=== PATIENT | female | born 1990 | race Caucasian/White ===

== ENCOUNTER 2017-05-12 06:12 | Emergency (ER) | payer OTHER | END 2017-05-12 09:12 | disposition home or self-care (01) | LOC: ER1 06:12 | DX: N34.2 Other urethritis (principal); R10.2 Pelvic and perineal pain; F17.200 Nicotine dependence, unspecified, uncomplicated; Z88.0 Allergy status to penicillin; Z88.1 Allergy status to other antibiotic agents; Z88.8 Allergy status to other drugs, medicaments and biological substances | CPT/HCPCS: 81001; 84703; 87210; 99283; Q9962 ==

== ENCOUNTER 2017-05-12 22:44 | Emergency (ER) | payer OTHER ==
[2017-05-13 00:42] LABS: HEMOGLOBIN 13.3 gm/dl (12.3-15.3); RED BLOOD COUNT 4.41 M/UL (4.00-5.10); WHITE BLOOD COUNT 8.1 K/UL (4.5-11.0)
[2017-05-13 00:58] LABS: BUN/CREATININE RATIO 21 (0-10)
== END 2017-05-13 02:30 | disposition home or self-care (01) ==
LOC: ER1 22:44
PROVIDERS: Family Medicine
DX: R10.84 Generalized abdominal pain (principal); F17.210 Nicotine dependence, cigarettes, uncomplicated; Z88.0 Allergy status to penicillin; Z88.1 Allergy status to other antibiotic agents; Z88.5 Allergy status to narcotic agent
CPT/HCPCS: 36415; 80053; 81001; 82150; 83690; 84703; 85025; 99284; J1885; J7050

== ENCOUNTER 2020-09-13 19:10 | Emergency (ER) | payer OTHER ==
[~2020-09-13 19:10] MED LIST: AUGMENTIN 875-1 EACH PO; BACTROBAN OINT22 GM EXT; DIFLUCAN150 MG PO; FLOXIN 0.3% OTIC5 ML AD; IBU800 MG PO; IBUPROFEN600 MG PO; IBUPROFEN800 MG PO
== END 2020-09-13 20:25 | disposition left against medical advice (07) ==
LOC: ER1 19:10
DX: H92.03 Otalgia, bilateral (principal); R51.9 Headache, unspecified; R07.9 Chest pain, unspecified; Z53.21 Procedure and treatment not carried out due to patient leaving prior to being seen by health care provider

== ENCOUNTER 2021-01-02 18:58 | Emergency (ER) | payer OTHER ==
[2021-01-03 01:33] LABS: HEMOGLOBIN 13.8 gm/dl (12.3-15.3); RED BLOOD COUNT 4.49 M/UL (4.00-5.10); WHITE BLOOD COUNT 7.3 K/UL (4.5-11.0)
[2021-01-03 01:52] LABS: BUN/CREATININE RATIO 12 (0-10)
[2021-01-03] MEDS ORDERED: CYCLOBENZAPRINE5 MG PO (03:49)
[2021-01-03] MEDS ORDERED: NAPROSYN500 MG PO (03:49)
[2021-01-03] MEDS ORDERED: PREDNISONE 20 M20 MG PO (04:26)
== END 2021-01-03 04:47 | disposition home or self-care (01) ==
LOC: ER1 18:58
PROVIDERS: Physician Assistant
DX: S39.012A Strain of muscle, fascia and tendon of lower back, initial encounter (principal); R10.31 Right lower quadrant pain; M25.551 Pain in right hip; M79.604 Pain in right leg; Z88.0 Allergy status to penicillin; Z88.1 Allergy status to other antibiotic agents; Z88.6 Allergy status to analgesic agent; F17.200 Nicotine dependence, unspecified, uncomplicated; X58.XXXA Exposure to other specified factors, initial encounter; Y92.009 Unspecified place in unspecified non-institutional (private) residence as the place of occurrence of the external cause
CPT/HCPCS: 80053; 81001; 83690; 84703; 85025; 96374; 96375; 99284; J2270; J2405; J7030; Q9967

== ENCOUNTER 2021-02-07 22:56 | Emergency (ER) | payer OTHER ==
[~2021-02-07 22:56] MED LIST changes: +CYCLOBENZAPRINE5 MG PO; +NAPROSYN500 MG PO; +PREDNISONE 20 M20 MG PO
[2021-02-08 01:33] LABS: HEMOGLOBIN 14.3 gm/dl (12.3-15.3); RED BLOOD COUNT 4.66 M/UL (4.00-5.10); WHITE BLOOD COUNT 9.2 K/UL (4.5-11.0)
[2021-02-08 01:46] LABS: BUN/CREATININE RATIO 17 (0-10)
== END 2021-02-08 02:07 | disposition left against medical advice (07) ==
LOC: ER1 22:56
PROVIDERS: Emergency Medicine
DX: R10.31 Right lower quadrant pain (principal); R11.0 Nausea; R10.811 Right upper quadrant abdominal tenderness; F17.200 Nicotine dependence, unspecified, uncomplicated
CPT/HCPCS: 80053; 83690; 84703; 85025; 96374; 96375; 99284; J2270; J2405; Q9967

== ENCOUNTER 2021-03-30 00:14 | Emergency (ER) | payer OTHER ==
[2021-03-30 00:57] LABS: RED BLOOD COUNT 4.53 M/UL (4.00-5.10); WHITE BLOOD COUNT 8.2 K/UL (4.5-11.0)
[2021-03-30 01:15] LABS: BUN/CREATININE RATIO 9 (0-10)
[2021-03-30] MEDS ORDERED: ZOFRAN ODT 4 MG4 MG PO (03:32)
[2021-03-30] MEDS ORDERED: BENTYL 20MG TAB20 MG PO (03:32)
== END 2021-03-30 03:40 | disposition home or self-care (01) ==
LOC: ER1 00:14
PROVIDERS: Physician Assistant
DX: R10.31 Right lower quadrant pain (principal); R11.0 Nausea; Z88.0 Allergy status to penicillin; Z88.5 Allergy status to narcotic agent; Z88.8 Allergy status to other drugs, medicaments and biological substances
CPT/HCPCS: 80053; 81001; 83605; 83690; 84703; 85025; 87086; 99284; Q9967

== ENCOUNTER 2021-07-28 10:18 | Emergency (ER) | payer OTHER ==
[~2021-07-28 10:18] MED LIST changes: +BENTYL 20MG TAB20 MG PO; +ZOFRAN ODT 4 MG4 MG PO
== END 2021-07-28 11:32 | disposition home or self-care (01) ==
LOC: ER1 10:18
DX: R05.9 Cough, unspecified (principal); Z88.0 Allergy status to penicillin; Z88.8 Allergy status to other drugs, medicaments and biological substances; F17.200 Nicotine dependence, unspecified, uncomplicated; Z20.822 Contact with and (suspected) exposure to COVID-19
CPT/HCPCS: 99283; U0003

== ENCOUNTER 2021-07-30 17:29 | Emergency (ER) | payer OTHER ==
[2021-07-30] MEDS ORDERED: MECLIZINE HCL12.5 MG PO (22:33)
[2021-07-30] MEDS ORDERED: MACROBID 100 M100 MG PO (22:33)
== END 2021-07-30 22:00 | disposition home or self-care (01) ==
LOC: ER1 17:29
DX: H92.03 Otalgia, bilateral (principal); R42 Dizziness and giddiness; J06.9 Acute upper respiratory infection, unspecified; R30.0 Dysuria; N89.8 Other specified noninflammatory disorders of vagina; Z88.0 Allergy status to penicillin; Z88.8 Allergy status to other drugs, medicaments and biological substances
CPT/HCPCS: 71045; 81001; 84703; 87086; 99283

== ENCOUNTER → 2021-12-19 | Outpatient (CLI) | payer OTHER ==
[~2021-12-19] MED LIST changes: +MACROBID 100 M100 MG PO; +MECLIZINE HCL12.5 MG PO
[2021-12-19 22:06] LABS: HEMOGLOBIN 13.1 gm/dl (12.3-15.3); RED BLOOD COUNT 4.48 M/UL (4.00-5.10)
== END ==
LOC: LAB 21:25
PROVIDERS: Nurse Practitioner Family
DX: R53.83 Other fatigue (principal)
CPT/HCPCS: 82728; 83036; 83540; 83550; 84443; 85025

== ENCOUNTER → 2022-01-10 | Outpatient (CLI) | payer OTHER ==
[2022-01-10 22:40] LABS: HEMOGLOBIN 13.6 gm/dl (12.3-15.3); RED BLOOD COUNT 4.49 M/UL (4.00-5.10); WHITE BLOOD COUNT 7.2 K/UL (4.5-11.0)
== END ==
LOC: LAB 22:05
PROVIDERS: Nurse Practitioner Family
DX: R43.8 Other disturbances of smell and taste (principal)
CPT/HCPCS: 82607; 82728; 83540; 83550; 85025

== ENCOUNTER 2022-03-04 02:07 | Emergency (ER) | payer OTHER ==
[2022-03-04 04:08] LABS: HEMOGLOBIN 12.5 gm/dl (12.3-15.3); RED BLOOD COUNT 4.12 M/UL (4.00-5.10); WHITE BLOOD COUNT 7.3 K/UL (4.5-11.0)
[2022-03-04 04:27] LABS: BUN/CREATININE RATIO 14 (0-10)
== END 2022-03-04 04:45 | disposition home or self-care (01) ==
LOC: ER1 02:07
PROVIDERS: Family Medicine
DX: N64.4 Mastodynia (principal); M54.6 Pain in thoracic spine; F17.200 Nicotine dependence, unspecified, uncomplicated; Z88.0 Allergy status to penicillin; Z88.1 Allergy status to other antibiotic agents
CPT/HCPCS: 71045; 80048; 82550; 82553; 84484; 85025; 86140; 93005; 99284

== ENCOUNTER 2022-03-19 20:26 | Emergency (ER) | payer OTHER | END 2022-03-19 22:06 | disposition home or self-care (01) | LOC: ER1 20:26 | DX: U07.1 COVID-19 (principal); J02.9 Acute pharyngitis, unspecified; H92.09 Otalgia, unspecified ear; Z88.0 Allergy status to penicillin; Z88.1 Allergy status to other antibiotic agents; F17.200 Nicotine dependence, unspecified, uncomplicated | CPT/HCPCS: 0240U; 87081; 87880; 99283 ==